=== PATIENT | male | born 1975 | race Two or more races ===

== ENCOUNTER 2024-09-10 05:54 | Emergency (ER) | payer OTHER ==
[~2024-09-10] VITALS: Ht 170.2 cm; Wt 74.8 kg
[2024-09-10] MEDS ORDERED: KETOROLAC TROMETHAMINE 60 MG VIAL IM ONE (06:30)
[2024-09-10] MEDS ORDERED: DICLOFENAC SODI75 MG PO (06:44)
== END 2024-09-10 06:52 | disposition home or self-care (01) ==
LOC: ER 05:57
DX: S93.492A Sprain of other ligament of left ankle, initial encounter (principal); X58.XXXA Exposure to other specified factors, initial encounter; Y93.41 Activity, dancing; Y92.89 Other specified places as the place of occurrence of the external cause; Y99.8 Other external cause status